=== PATIENT | female | born 1965 | race Caucasian/White ===

== ENCOUNTER → 2022-08-25 | Outpatient (CLI) | payer MEDICAID, SELFPAY ==
--- NOTE | 2022-08-25 10:36 | RAD_ITS ---
STUDY: X-RAY - THORACIC SPINE REASON FOR EXAM: Female, 56 years old. Mid back pain TECHNIQUE: 3 view(s) of the thoracic spine were obtained. COMPARISON: None. FINDINGS: Normal kyphosis of the thoracic spine. There is a mild dextroscoliosis. There is multilevel endplate spondylosis of the thoracic vertebrae. There is multilevel disc space narrowing of the thoracic spine. The soft tissue structures are unremarkable. RAD/Thoracic Spine 3 Views IMPRESSION: Degenerative changes throughout the thoracic spine. Electronically Signed: Jeremy Mixon MD at 13:23 EDT ,
== END | disposition home or self-care (01) ==
PROVIDERS: Visit Provider Anesthesiology Pain Medicine
DX: M51.34 Other intervertebral disc degeneration, thoracic region (principal)
CPT/HCPCS: 72072

== ENCOUNTER → 2022-11-04 | Outpatient (CLI) | payer MEDICAID, SELFPAY ==
--- NOTE | 2022-11-04 17:07 | MRI_ITS ---
EXAM: MR LUMBAR SPINE WITHOUT INTRAVENOUS CONTRAST CLINICAL INDICATION: RADICULOPATHY TECHNIQUE: Multiplanar and multisequence MR images of the lumbar spine without intravenous contrast. COMPARISON: No relevant prior studies available. FINDINGS: VERTEBRAE: Unremarkable. Vertebral body heights are preserved. Normal vertebral bodies and posterior elements. Normal alignment. No spondylolisthesis. There is preservation of the normal lumbar lordosis. SPINAL CORD: Unremarkable. Normal position and signal intensity of the conus medullaris. SOFT TISSUES: Unremarkable. DISCS/SPINAL CANAL/NEURAL FORAMINA: No demonstrated fracture. Vertebral bodies are normal in height. T12-L1: Disc dehydration. Mild, noncompressive spondylotic bar. Normal bilateral facet joints. Normal central canal. Normal bilateral lateral recesses. Normal intervertebral neural foramina. L1-2: Marked disc space narrowing. Mild, noncompressive spondylotic bar. No canal stenosis. Mild foraminal encroachment due to spurring. L2-3: Disc dehydration. Normal bilateral facet joints. Normal central canal. Normal bilateral lateral recesses. Normal intervertebral neural foramina. L3-4: Disc dehydration. Normal bilateral facet joints. Normal central canal. Normal bilateral lateral recesses. Normal intervertebral neural foramina. L4-5: Disc dehydration. 2 mm degenerative anterolisthesis. No spondylolysis. No canal stenosis. Mild facet hypertrophy. Mild foraminal encroachment on the right due to facet hypertrophy. L5-S1: Disc dehydration. 4 mm degenerative anterolisthesis. No disc protrusion or canal stenosis. Mild facet hypertrophy. Mild left foraminal encroachment due to spurring and facet hypertrophy. MRI/Spine Lumbar (Routine) IMPRESSION: No compressive disc disease canal or high-grade foraminal stenosis. Mild listhesis at L4-5 and L5-S1. Electronically Signed: Ying Horta MD at 23:06 EDT Reading Location ID and State: [id number] / Tel , Service support ,
== END | disposition home or self-care (01) ==
LOC: MRI 17:04
PROVIDERS: PCP Internal Medicine; Referring Provider Anesthesiology Pain Medicine; Visit Provider Anesthesiology Pain Medicine
DX: M54.16 Radiculopathy, lumbar region (principal)
CPT/HCPCS: 72148

== ENCOUNTER → 2023-04-05 | Outpatient (CLI) | payer MEDICAID, SELFPAY ==
--- NOTE | 2023-04-05 13:10 | RAD_ITS ---
STUDY: X-RAY - CERVICAL SPINE REASON FOR EXAM: Female, 57 years old. Fall. Pain. TECHNIQUE: 3 view(s) of the cervical spine were obtained on 4 images. COMPARISON: None FINDINGS: Normal anterior atlantoaxial articulation. Normal odontoid process. Normal cervical lordosis. Mild diffuse uncovertebral and facet sclerosis. Minimal intervertebral disc space narrowing at C5-6 and C6-7. Minimal osteophyte formation at C5-6 and C6-7. Bilateral minimal carotid calcification. RAD/Cerv Spine 2 or 3 Views IMPRESSION: Mild lower cervical spondylosis. No acute abnormality or erosive changes. Electronically Signed: José Hamilton MD at 14:13 EDT ,
== END | disposition home or self-care (01) ==
LOC: RAD 13:06
PROVIDERS: PCP Internal Medicine; Referring Provider Anesthesiology Pain Medicine; Visit Provider Anesthesiology Pain Medicine
DX: M47.892 Other spondylosis, cervical region (principal)
CPT/HCPCS: 72040

== ENCOUNTER → 2023-10-23 | Outpatient (CLI) | payer MEDICAID, SELFPAY ==
--- NOTE | 2023-10-23 09:25 | MRI_ITS ---
STUDY: MRI CERVICAL SPINE WITHOUT CONTRAST REASON FOR EXAM: Female, 57 years old. Pain. Possible cervical myelopathy. TECHNIQUE: Standardized fat and water weighted pulse sequences were obtained in the sagittal and axial planes. COMPARISON: None FINDINGS: Normal foramen magnum and brainstem-cervical cord junction. Normal craniovertebral junction. Normal anterior atlantoaxial articulation. Normal odontoid process. Mild straightening of the C-spine curvature. Normal vertebral bodies and posterior osseous elements. C2-3: Normal endplates. Normal disc height, signal and morphology. Normal central canal and intervertebral neural foramina. C3-4: Normal endplates. Normal disc height, signal and morphology. Normal central canal and intervertebral neural foramina. C4-5: Normal endplates. Normal disc height. Mild ventral extradural defect due to posterior bulging annulus. Normal central canal and intervertebral neural foramina. C5-6: Normal endplates. Mild disc space height narrowing. Mild ventral extradural defect due to posterior marginal spurs. Normal central canal and intervertebral neural foramina. C6-7: Normal endplates. Moderate disc space height narrowing. Mild ventral extradural defect due to small posterior bulging annulus. Normal central canal and left intervertebral neural foramen. Mild stenosis of the right intervertebral neural foramen due to osteophyte arising from the right uncovertebral joint. C7-T1 and T1-T2: Normal endplates. Normal disc height, signal and morphology. Normal central canal and intervertebral neural foramina. T2-T3: (Sagittal only). Normal endplates. Normal disc height. Mild ventral extradural defect due to posterior bulging annulus. Normal central canal and intervertebral neural foramina. T3-T4: (Sagittal only). Normal endplates. Mild disc space height narrowing. Minimal ventral extradural defect due to posterior bulging annulus. Normal central canal and intervertebral neural foramina. T4-T5: (Sagittal only). Normal endplates. Minimal disc space height narrowing. Mild ventral extradural defect due to posterior bulging annulus. Normal central canal and intervertebral neural foramina. T5-T6: (Sagittal only). Normal endplates. Minimal disc space height narrowing. Prominent and elongated midline ventral extradural defect is suspicious for small posterior midline and caudal disc extrusion. Normal central canal and intervertebral neural foramina. Normal cervical cord. Normal upper thoracic spinal cord. Normal included portions of the midline brainstem and cerebellum. Normal visualized soft tissue structures. MRI/Spine Cervical (Routine) IMPRESSION: 1. Incidental midline elongated ventral extradural defect at T5-T6 disc space level is most likely small posterior midline and caudal disc extrusion. This is of questionable clinical significance since there is no associated spinal stenosis or cord compression. 2. No MRI evidence of cervical extruded disc fragment or cervical disc protrusion. 3. Mild stenosis of the right C6-C7 intervertebral neural foramen due to small osteophyte arising from the right uncovertebral joint. 4. Normal cervical spinal cord. Electronically Signed: Triston Burk MD at 10:28 EDT ,
== END | disposition home or self-care (01) ==
LOC: MRI 14:25
PROVIDERS: PCP Internal Medicine; Referring Provider Orthopaedic Surgery Orthopaedic Surgery of the Spine; Visit Provider Orthopaedic Surgery Orthopaedic Surgery of the Spine
DX: G95.9 Disease of spinal cord, unspecified (principal)
CPT/HCPCS: 72141

== ENCOUNTER → 2024-12-09 | Outpatient (CLI) | payer MEDICAID, SELFPAY ==
--- NOTE | 2024-12-09 09:58 | RAD_ITS ---
PROCEDURE: THORACIC SPINE 2 VIEWS 12/09/2024 REASON FOR EXAM: SPONDYLOSIS WITHOUT MYELOPATHY OR RADICULOPATHY, THORACIC REGION TECHNIQUE: THORACIC SPINE 3 VIEWS COMPARISON: Thoracic spine study of 08/25/2022 RAD/Thoracic Spine 2 Views IMPRESSION: [id number] degenerative changes of the thoracic spine visualized upper regino mbar spine are again seen, with slight interval progression since 2022. A slight gentle thoracic dextroscoliosis is again seen . No evidence of fracture or subluxation is evident. Reading Location: [place] [id number]
== END | disposition home or self-care (01) ==
LOC: RAD 09:57
PROVIDERS: PCP Internal Medicine; Referring Provider Anesthesiology Pain Medicine; Visit Provider Anesthesiology Pain Medicine
DX: M47.814 Spondylosis without myelopathy or radiculopathy, thoracic region (principal)
CPT/HCPCS: 72070